=== PATIENT | male | born 1995 | race Caucasian/White ===

== ENCOUNTER 2017-07-26 08:43 | Emergency (ER) | payer SELFPAY ==
[2017-07-26 08:57] VITALS: BP 121/72
--- NOTE | 2017-07-26 09:25 | EDM.PDOC ---
ED HPI GENERAL MEDICAL PROBLEM - General Chief Complaint: ENT Problem Stated Complaint: STREP THROAT? Time Seen by Provider: 07/26/17 09:12 Source of Information: Reports: Patient History Limitations: Reports: No Limitations - History of Present Illness INITIAL COMMENTS - FREE TEXT/NARRATIVE: This 22 yo male patient reports to the ED with a sore throat which started 2 days ago. The patient reports he has been taking Tylenol, but has not been feeling much better. The patient does not know if he has been having a fever due to taking Tylenol. 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 Bilateral Throat Pain Score (Numeric/FACES): 6 - Related Data Allergies Allergy/AdvReac Type Severity Reaction Status Date / Time No Known Allergies Allergy Verified 07/26/17 08:53 Home Meds: Home Meds diphenhydrAMINE [Benadryl] 50 mg PO Q6H PRN 08/05/15 [History] Acetaminophen [Mapap] 1,000 mg PO Q8H PRN 07/26/17 [History] Past Medical History - Past Health History Medical/Surgical History: Denies Medical/Surgical History Social & Family History - Family History Family Medical History: Noncontributory - Tobacco Use Smoking Status *Q: Never Smoker - Recreational Drug Use Recreational Drug Use: No ED ROS ENT - Review of Systems Review Of Systems: ROS reveals no pertinent complaints other than HPI. ED EXAM, ENT - Physical Exam Exam: See Below Exam Limited By: No Limitations General Appearance: Alert, WD/WN, Moderate Distress Eye Exam: Bilateral Eye: EOMI, Normal Inspection, PERRL Ears: Normal External Exam, Normal Canal, Hearing Grossly Normal, Normal TMs Nose: Normal Inspection, Normal Mucousa, No Blood Mouth/Throat: Tonsillar Erythema, Tonsillar Exudates, Tonsillar Swelling Head: Atraumatic, Normocephalic Neck: Lymphadenopathy (L), Lymphadenopathy (R) Respiratory/Chest: No Respiratory Distress, Lungs Clear, Normal Breath Sounds, No Accessory Muscle Use, Chest Non-Tender Cardiovascular: Normal Peripheral Pulses, Regular Rate, Rhythm, No Edema, No Gallop, No JVD, No Murmur, No Rub GI/Abdominal: Normal Bowel Sounds, Soft, Non-Tender, No Organomegaly, No Distention, No Abnormal Bruit, No Mass (Male) Exam: Deferred Rectal (Males) Exam: Deferred Back: Normal Inspection, Full Range of Motion Extremities: Normal Inspection, Normal Range of Motion, Non-Tender, No Pedal Edema, Normal Capillary Refill Neurological: Alert, Oriented, CN II-XII Intact, Normal Cognition, Normal Gait, Normal Reflexes, No Motor/Sensory Deficits Psychiatric: Normal Affect, Normal Mood Skin: Warm, Dry, Intact, Normal Color, No Rash Lymphatic: No Adenopathy Course - Vital Signs Last Recorded V/S: Last Vital Signs Temp 37.7 C 07/26/17 08:54 Pulse 116 H 07/26/17 08:54 Resp 16 07/26/17 08:54 BP 121/72 07/26/17 08:54 Pulse Ox 99 07/26/17 08:54 - Orders/Labs/Meds Orders: Active Orders 24 hr Category Date Time Status CULTURE STREP A CONFIRMATION [RM] Stat Lab 07/26/17 08:50 Results STREP SCRN A RAPID W CULT CONF [RM] Stat Lab 07/26/17 08:50 Results Labs: Laboratory Tests 07/26/17 Range/Units 09:15 Monoscreen Positive Departure - Departure Time of Disposition: 09:44 Disposition: Home, Self-Care 01 Condition: Fair Clinical Impression: Mononucleosis Pharyngitis Qualifiers: Pharyngitis/tonsillitis etiology: unspecified etiology Qualified Code(s): J02.9 - Acute pharyngitis, unspecified - Discharge Information Instructions: Pharyngitis, [id number], Infectious Mononucleosis, [id number] Forms: ED Department Discharge Care Plan Goals: The patient was advised of the examination and lab results during the visit. The patient was given a script for Azithromycin (250 mg) #6 to take 2 by mouth on day 1 and 1 by mouth on days 2-5. The patient was encouraged to continue taking Tylenol or ibuprofen as directed for temporary symptomatic relief. The patient was encouraged to increase his oral fluid intake. If the patient has any additional symptoms or concerns, the patient should visit his primary care facility or return to the emergency department. - My Orders Last 24 Hours: My Active Orders 07/26/17 08:50 CULTURE STREP A CONFIRMATION [RM] Stat STREP SCRN A RAPID W CULT CONF [RM] Stat - Assessment/Plan Last 24 Hours: My Active Orders 07/26/17 08:50 CULTURE STREP A CONFIRMATION [RM] Stat STREP SCRN A RAPID W CULT CONF [RM] Stat
== END 2017-07-26 09:50 | disposition home or self-care (01) ==
LOC: DL.ED 08:43
DX: J02.9 Acute pharyngitis, unspecified (principal); B27.90 Infectious mononucleosis, unspecified without complication
CPT/HCPCS: 36415; 86308; 87081; 87430; 99283

== ENCOUNTER 2017-07-27 18:08 | Emergency (ER) | payer SELFPAY ==
[2017-07-27] MEDS ORDERED: Sodium Chloride 0.65% Nasal Spray 45 ML Bottle NAS ONE (18:09)
[2017-07-27] MEDS ORDERED: Azithromycin 250 MG Tab PO ONE (18:09)
[2017-07-27] MEDS ORDERED: Codeine/guaiFENesin 100-10 MG/5 ML Syrup 5 ML Cup PO ONE (18:09)
--- NOTE | 2017-07-27 18:39 | EDM.PDOC ---
<Aravind Monahan - Last Filed: 07/27/17 18:53> ED HPI GENERAL MEDICAL PROBLEM - General Chief Complaint: General Stated Complaint: [id number] THROAT HURTS LYMPH NODES SWOLLEN Time Seen by Provider: 07/27/17 18:20 Source of Information: Reports: Patient History Limitations: Reports: No Limitations - History of Present Illness INITIAL COMMENTS - FREE TEXT/NARRATIVE: This 22 yo male patient report back to the ED due to a sore throat. The patient was seen in the ED yesterday and diagnosed with [place] and tonsilitis. The patient was started on Azithromycin. The patient took his second dose of Azithromycin today.The patient reports he has been drinking fluids, but not as much as normal. 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) Throat Pain Score (Numeric/FACES): 8 - Related Data Allergies Allergy/AdvReac Type Severity Reaction Status Date / Time No Known Allergies Allergy Verified 07/26/17 08:53 Home Meds: Home Meds diphenhydrAMINE [Benadryl] 50 mg PO Q6H PRN 08/05/15 [History] Acetaminophen [Mapap] 1,000 mg PO Q8H PRN 07/26/17 [History] Past Medical History - Past Health History Medical/Surgical History: Denies Medical/Surgical History Social & Family History - Family History Family Medical History: Noncontributory - Tobacco Use Smoking Status *Q: Never Smoker - Recreational Drug Use Recreational Drug Use: No ED ROS GENERAL - Review of Systems Review Of Systems: ROS reveals no pertinent complaints other than HPI. ED EXAM, GENERAL - Physical Exam Exam: See Below Exam Limited By: No Limitations General Appearance: Alert, WD/WN, Moderate Distress Eye Exam: Bilateral Eye: EOMI, Normal Inspection, PERRL Ears: Normal External Exam, Normal Canal, Hearing Grossly Normal, Normal TMs Nose: Normal Inspection, Normal Mucosa, No Blood Throat/Mouth: Other (tonsilar pustules and exudate) Head: Atraumatic, Normocephalic Neck: Lymphadenopathy (L), Lymphadenopathy (R) Respiratory/Chest: No Respiratory Distress, Lungs Clear, Normal Breath Sounds, No Accessory Muscle Use, Chest Non-Tender Cardiovascular: Normal Peripheral Pulses, Regular Rate, Rhythm, No Edema, No Gallop, No JVD, No Murmur, No Rub GI/Abdominal: Normal Bowel Sounds, Soft, Non-Tender, No Organomegaly, No Distention, No Abnormal Bruit, No Mass (Male) Exam: Deferred Rectal (Males) Exam: Deferred Back Exam: Normal Inspection, Full Range of Motion, NT Extremities: Normal Inspection, Normal Range of Motion, Non-Tender, Normal Capillary Refill, No Pedal Edema Neurological: Alert, Oriented, CN II-XII Intact, Normal Cognition, Normal Gait, Normal Reflexes, No Motor/Sensory Deficits Psychiatric: Normal Affect, Normal Mood Skin Exam: Warm, Dry, Intact, Normal Color, No Rash Lymphatic: No Adenopathy Course - Vital Signs Last Recorded V/S: Last Vital Signs Temp 100.5 F 07/27/17 21:15 Pulse 78 07/27/17 21:15 Resp 18 07/27/17 21:15 BP 122/65 07/27/17 21:15 Pulse Ox 97 07/27/17 21:15 - Orders/Labs/Meds Meds: Medications Discontinued Medications Generic Name Dose Route Start Last Admin Trade Name Artq PRN Reason Stop Dose Admin Acetaminophen 650 mg 07/27/17 19:36 07/27/17 19:40 Tylenol PO 07/27/17 19:37 650 mg NOW ONE Administration Azithromycin Confirm 07/27/17 21:05 07/27/17 21:10 Zithromax Administered 07/27/17 21:06 Not Given Dose 500 mg .ROUTE .STK-MED ONE Guaifenesin/Codeine Phosphate 5 ml 07/27/17 18:26 07/27/17 18:43 Robitussin Ac PO 07/27/17 18:27 5 ml ONETIME ONE Administration Guaifenesin/Codeine Phosphate Confirm 07/27/17 21:06 07/27/17 21:10 Robitussin Ac Administered 07/27/17 21:07 Not Given Dose 15 ml .ROUTE .STK-MED ONE Sodium Chloride 1,000 mls @ 999 mls/hr 07/27/17 18:26 07/27/17 18:42 Normal Saline IV 07/27/17 19:26 999 mls/hr .BOLUS ONE Administration Sodium Chloride 1,000 mls @ 999 mls/hr 07/27/17 19:36 07/27/17 19:39 Normal Saline IV 07/27/17 20:36 999 mls/hr .BOLUS ONE Administration Ketorolac Tromethamine 30 mg 07/27/17 18:26 07/27/17 18:43 Toradol IVPUSH 07/27/17 18:27 30 mg ONETIME ONE Administration Sodium Chloride Confirm 07/27/17 21:06 07/27/17 21:10 [place] Nasal [place] Administered 07/27/17 21:07 Not Given Dose 45 ml .ROUTE .STK-MED ONE Departure - Departure Disposition: Home, Self-Care 01 Clinical Impression: Mononucleosis - Discharge Information Instructions: Infectious Mononucleosis, [id number] Referrals: PCP,None [Primary Care Provider] - Forms: ED Department Discharge Additional Instructions: increase fluid intake Ibuprofen 600mg every 6 hours s needed for fever or discomfort Azithromycin 500mg tonight then 250mg every day x 4 days Robitussin AC 5ml every 6 hours as needed #15 home #100 Rx Clinic follow up Tuesday if symptoms worsening, not tolerating fluids, fever or any abdominal pain Avoid any contact sports <Yina Echavarria - Last Filed: 07/27/17 22:34> Course - Re-Assessments/Exams Free Text/Narrative Re-Assessment/Exam: Voices improvement following IVF. Decrease in throat pain. Departure - Departure Time of Disposition: 21:03 Condition: Fair
[2017-07-27] MEDS: Sodium Chloride 0.9% 1,000 ML IV ONE ×2 (18:42→19:39)
[2017-07-27] MEDS: Ketorolac 30 MG/ML SDV IVPUSH ONE (18:43)
[2017-07-27] MEDS: Codeine/guaiFENesin 100-10 MG/5 ML Syrup 5 ML Cup PO ONE (18:43)
[2017-07-27] MEDS: Acetaminophen 325 MG Tab PO ONE (19:40)
[2017-07-27] MEDS: Azithromycin 250 MG Tab ONE (21:10)
[2017-07-27] MEDS: Codeine/guaiFENesin 100-10 MG/5 ML Syrup 5 ML Cup ONE (21:10)
[2017-07-27] MEDS: Sodium Chloride 0.65% Nasal Spray 45 ML Bottle ONE (21:10)
[2017-07-27 21:16] VITALS: BP 122/65
== END 2017-07-27 21:16 | disposition home or self-care (01) ==
LOC: DL.ED 18:08
DX: B27.90 Infectious mononucleosis, unspecified without complication (principal)
CPT/HCPCS: 96361; 96374; 99283; A9270; J1885; J7030